=== PATIENT | female | born 1995 | race African-American/Black ===

== ENCOUNTER 2021-05-25 17:20 | Emergency (ER) | payer OTHER, SELFPAY ==
[2021-05-25 17:28] VITALS: BP 124/66; PULSE 108; RESP 18; O2SAT 100
[2021-05-25 17:30] VITALS: BMI 40.1
--- NOTE | 2021-05-25 17:38 | ED_ITS ---
HPI - SOB/Dyspnea General Chief Complaint: Dyspnea Stated Complaint: asthma - work related Time Seen by Provider: 05/25/21 17:27 Source: patient Mode of arrival: ambulatory Limitations: no limitations History of Present Illness HPI Narrative: 26-year-old female with a history of asthma here after having an asthma attack prior to arrival. Patient tells me ronnie was at work involved in a lengthy rescue when she became short of breath with wheezing. She tells me she gave herself a DuoNeb. Rechecked her oxygen and it was 81%. Gave additional DuoNeb. Continued hypoxia and wheezing. Gave additional 2.5mg albuterol but oxygen saturations were still in the low 90s. Her partner placed an IV and gave her 125 mg of Solu-Medrol. On arrival she is feeling improved. Still complaining of a slight cough and mild wheezing but otherwise feels okay. Related Data Previous Rx's Medication Instructions Recorded codeine 10 mg-guaifenesin 100 mg/5 5 ml PO Q6H PRN #30 ml 05/25/21 mL oral liquid prednisone 20 mg tablet 40 mg PO DAILY #10 tab 05/25/21 Allergies Allergy/AdvReac Type Severity Reaction Status Date / Time No Known Allergies Allergy Verified 05/25/21 17:37 Review of Systems Review of Systems: Yes all other systems are reviewed and are negative Constitutional: Constitutional: Reports no additional constitutional complaints, Denies body ache(s), Denies chills, Denies fever(s), Denies headache(s) and Denies weakness Eyes: Eyes: Reports no additional eye complaints and Denies change in vision ENT: Reports system reviewed and no additional complaints, except as documented, Denies dizziness, Denies headache(s), Denies nasal congestion, Denies nasal discharge and Denies neck pain Cardiovascular: Cardiovascular: Reports no additional cardiovascular complaints, Denies chest pain, Denies leg edema and Reports dyspnea Respiratory: Respiratory: Reports no additional respiratory complaints, Reports cough, Reports dyspnea and Reports wheezing Gastrointestinal: Gastrointestinal: Reports no additional gastrointestinal complaints, Denies abdominal pain, Denies diarrhea, Denies nausea and Denies vomiting Genitourinary: Genitourinary: Reports no additional female genitourinary complaints and Denies urinary incontinence Musculoskeletal: Musculoskeletal: Reports no additional musculoskeletal complaints, Denies back pain, Denies arthralgias, Denies joint swelling, Denies neck pain, Denies numbness and Denies tingling Integumentary/Breasts: Skin/Breast: Reports system reviewed and no additional complaints, except as docu and Denies rash Neurologic: Reports system reviewed and no additional complaints, except as documented, Denies Abnormal speech present, Denies dizziness, Denies headache(s), Denies numbness, Denies tingling and Denies weakness Allergic/Immunologic: Allergic/Immunologic: Reports wheezing PMFSH Past Medical History Attestation statement: The following information was validated with the patient. Source: old records reviewed and nursing notes reviewed Social History Social History Alcohol intake: unknown Patient Tobacco Use Status: Tobacco use Unknown Use of substances other than those prescribed or required for medical reasons: Unknown Advance Directives: No Advance Directives Information Provided: No Physical Exam Vital Signs: Vital Signs: Last Vital Signs Pulse 108 H 05/25/21 17:28 Resp 18 05/25/21 17:28 BP 124/66 05/25/21 17:28 Pulse Ox 100 05/25/21 17:28 Body Mass Index 40.1 Const: General: cooperative, healthy appearing, comfortable and no acute d istress Orientation/consciousness: patient oriented x3 Limitations: no limitations HENMT: Head: Yes normal to inspection Ears: hearing grossly normal bilaterally General nose exam: Normal external nose present Face and sinu s: Yes normal facial exam Mouth: Normal oral and palatal mucosa present Throat: Yes posterior oropharynx normal Eyes: General: appearance normal, both eyes and all related structures Pupils: Equal, round and reactive pupils present Neck: Neck: Yes normal visual inspection Chest: Chest palpation & inspection: normal inspection of the chest Resp: Other: Expiratory wheezing throughout Mild tachypnea Effort & Inspection: normal respiratory effort Cardio: Rate: regular rate Rhythm: regular rhythm Peripheral pulses: Peripheral pulses 2+ throughout GI: Inspection: Yes normal to inspection Palpation (GI): Soft to palpation and nontender Auscultation: normal bowel sounds Back/Spine/Pelvis: Thoracic/Lumbar Spine: thoracic and lumbar spine normal to inspection Skin: General skin exam: no rashes or lesions noted Neuro: General: patient oriented x3, no focal motor deficits and normal sensation to monofilament Cranial nerves: Yes Equal, round and reactive pupils present Cognition (Neuro): normal cognition Speech: No Abnormal speech present Gait exam (Neuro): Normal gait present Motor exam (neuro): 5/5 motor strength present throughout Extrem: General: Yes normal to inspection Course Course Course Narrative: 26-year-old female here with complaints of asthma attack prior to arrival requiring 7.5 mg of albuterol by EMS and 125 mg of Solu-Medrol. On arrival she is feeling improved but still has some wheezing and mild tachypnea. Will give magnesium 2 g and reassess. 1820-patient feeling improved. Still has a slight bronchospastic cough but overall feeling better. Oxygen saturations 100% on room air. Plan for discharge home. Reviewed worrisome signs and symptoms of when to return to the emergency department. Comfortable discharge home. MDM - SOB/Dyspnea Medical Records Attestation: I reviewed the patient's medical records. Lab Data Attestation: I reviewed the patient's lab results. Discharge Plan Discharge Clinical Impression: Asthma with exacerbation Patient Disposition: Home, Self-Care Instructions: Asthma (ED) Additional Instructions: Continue your home medication Follow-up with your primary care doctor as needed Continue your inhaler I sent cough medication and prednisone to her pharmacy Prescriptions: New prednisone 20 mg tablet 40 mg PO DAILY Qty: 10 RF: 0 codeine-guaifenesin 10-100 mg/5 mL liquid 5 ml PO Q6H PRN (Reason: cough) Qty: 30 RF: 0 Referrals: Physician,Unknown J [Primary Care Provider] - 2 days Stand Alone Forms: Work/School Release Interventions: ED Discharge Assessment Last Done: 05/25/21 18:26 Discharge Date/Time: 05/25/21 18:26
[2021-05-25] MEDS: Magnesium Sulfate/H2O 2 GM/50 ML PIGGYBACK IV (17:43)
== END 2021-05-25 18:26 | disposition home or self-care (01) ==
PROVIDERS: Emergency Provider Internal Medicine
DX: J45.901 Unspecified asthma with (acute) exacerbation (principal); R06.02 Shortness of breath; Z79.899 Other long term (current) drug therapy
CPT/HCPCS: 96365; 96366; 99284; J3475